=== PATIENT | female | born 1995 | race Caucasian/White ===

== ENCOUNTER 2018-08-28 02:26 | Emergency (ER) | payer MEDICAID, OTHER ==
[~2018-08-28] VITALS: Ht 137.2 cm; Wt 46.6 kg
[2018-08-28 02:39] VITALS: BP 103/66
[2018-08-28] MEDS ORDERED: METH500T PO ×2 (02:53→03:06)
[2018-08-28] MEDS ORDERED: dexamethasone 4mg tablet PO ONE (03:05)
[2018-08-28] MEDS ORDERED: ondansetron 4mg rapidly disintigrating tab PO ONE (03:05)
[2018-08-28] MEDS ORDERED: HYDROcodone/acetaminophen 5mg/325mg tablet PO ONE (03:05)
[2018-08-28] MEDS ORDERED: diazepam 5mg tablet PO ONE (03:05)
[2018-08-28] MEDS ORDERED: METH4TAB3 PO (03:06)
[2018-08-28] MEDS ORDERED: ONDA4TAB6 PO (03:06)
== END 2018-08-28 03:21 | disposition home or self-care (01) ==
LOC: ER 02:26
DX: S39.012A Strain of muscle, fascia and tendon of lower back, initial encounter (principal); X50.1XXA Overexertion from prolonged static or awkward postures, initial encounter; Y93.89 Activity, other specified; Y92.69 Other specified industrial and construction area as the place of occurrence of the external cause; Y99.9 Unspecified external cause status
CPT/HCPCS: 99284; J8540